=== PATIENT | female | born 1985 | race Caucasian/White ===

== ENCOUNTER 2017-07-02 15:03 | Emergency (ER) | payer MEDICAID, OTHER ==
[~2017-07-02] VITALS: Ht 170.2 cm; Wt 113.0 kg
[~2017-07-02 15:03] MED LIST: ACET-703 PO; IBUP1TAB7 PO
[2017-07-02 15:09] VITALS: BP 144/87; PULSE 93; RESP 16; TEMP 98; O2SAT 99
[2017-07-02] MEDS ORDERED: AUGM875T3 PO (16:23)
[2017-07-02] MEDS ORDERED: FLUT1SPR5 EACH NARE (16:23)
--- NOTE | 2017-07-02 16:23 | PD ---
HPI Chief Complaint: Cold / Flu Symptoms Time Seen by Provider: 16:15 Travel History International Travel<30 days: No Contact w/Intl Traveler<30days: No Traveled to known affect area: No History of Present Illness HPI 32-year-old female here with sinus pain and pressure 7 days. She reports prima nasal discharge. History of sinusitis with similar symptoms in the past. Denies fever or chills. Symptoms severity is moderate. No aggravating or alleviating factors. PFSH Past Medical History Hx Anticoagulant Therapy: No Arthritis: No Asthma: Yes Blood Disorders: No Anxiety: No Depression: No Heart Rhythm Problems: No Cancer: No Cardiovascular Problems: Yes High Cholesterol: No Chemotherapy: No Chest Pain: No Congestive Heart Failure: No Cerebrovascular Accident: No Diabetes: No Diminished Hearing: No Gastrointestinal Disorders: Yes (HYPEREMESIS) GERD: No Glaucoma: No Headaches: Yes Hepatitis: No Hiatal Hernia: No Hypertension: No Immune Disorder: Yes Kidney Stones: No Musculoskeletal: No Neurologic: No Psychiatric: No Reproductive: No Respiratory: Yes (ASTHMA) Immunizations Current: Yes Myocardial Infarction: No Radiation Therapy: No Renal Failure: No Schizophrenia: Yes Seizures: No Sickle Cell Disease: No Sleep Apnea: No Thyroid Disease: No Ulcer: No ?: Not : 4 Para: 1 Miscarriage: 2 : 0 Dilation and Curettage (D&C): Yes (2007) Past Surgical History Abdominal Surgery: Yes () AICD: No Appendectomy: Yes (2007) Cardiac Surgery: No Section: Yes (X3) Ear Surgery: No Endocrine Surgery: No Eye Surgery: No Gynecologic Surgery: Yes (D&C 12/2007) Insulin Pump: No Neurologic Surgery: No Oral Surgery: No Pacemaker: No Thoracic Surgery: No Other Surgery: No Social History Alcohol Use: Yes (RARE) Tobacco Use: No Substance Use: No Allergies-Medications (Allergen,Severity, Reaction): Coded Allergies: clarithromycin (Unverified Allergy, Severe, PARENTS BOTH ALLERGIC TO BIAXIN, 07/02/17) Reported Meds & Prescriptions Reported Meds & Active Scripts Active No Active Prescriptions or Reported Medications Review of Systems Except as stated in HPI: all other systems reviewed are Neg General / Constitutional: No: Fever Eyes: No: Visual changes HENT: Positive: Congestion Cardiovascular: No: Chest Pain or Discomfort Respiratory: No: Shortness of Breath Gastrointestinal: No: Abdominal Pain Genitourinary: No: Dysuria Physical Exam Narrative GENERAL: Alert female who is well-appearing. SKIN: Warm and dry. HEAD: Normocephalic. EYES: No injection or drainage. NOSE: Tenderness over the frontal and maxillary sinuses NECK: Supple, trachea midline. No JVD or lymphadenopathy. CARDIOVASCULAR: Regular rate and rhythm RESPIRATORY: Breath sounds equal bilaterally. No accessory muscle use. Data Data Last Documented VS Vital Signs Date Time Temp Pulse Resp B/P (MAP) Pulse Ox O2 Delivery O2 Flow Rate FiO2 07/02/17 15:09 98.0 93 16 144/87 (106) 99 MDM Medical Decision Making Medical Screen Exam Complete: Yes Emergency Medical Condition: Yes Differential Diagnosis Sinusitis, URI, laryngitis Narrative Course 32-year-old female here with sinus pain and pressure 7 days. Patient has pain and tenderness over her frontal maxillary sinuses. Reported mucopurulent nasal discharge. Patient be treated for sinusitis Diagnosis Primary Impression: Sinusitis Qualified Codes: J01.10 - Acute frontal sinusitis, unspecified Referrals: Primary Care Physician Scripts Fluticasone Nasal [place] (Flonase Nasal [place]) 50 Mcg/Act [place] 50 MCG EACH NARE BID for Allergies, #1 BOTTLE 0 Refills Prov: Hellen Berger 07/02/17 Amoxicillin-Clavulanate (Augmentin) 875-125 Mg Tab 1 TAB PO BID for Infection, #20 TAB 0 Refills Prov: Hellen Berger 07/02/17 Disposition: 01 DISCHARGE HOME Condition: Stable Hellen Berger Jul 02, 2017 16:23
== END 2017-07-02 16:31 | disposition home or self-care (01) ==
LOC: PHEFT 15:03
DX: J01.10 Acute frontal sinusitis, unspecified (principal); R09.89 Other specified symptoms and signs involving the circulatory and respiratory systems; Z87.09 Personal history of other diseases of the respiratory system; Z86.79 Personal history of other diseases of the circulatory system; Z87.19 Personal history of other diseases of the digestive system; Z86.59 Personal history of other mental and behavioral disorders
CPT/HCPCS: 99283

== ENCOUNTER 2017-09-17 14:18 | Emergency (ER) | payer OTHER ==
[~2017-09-17] VITALS: Ht 170.2 cm; Wt 111.0 kg
[~2017-09-17 14:18] MED LIST changes: -ACET-703 PO; +AUGM875T3 PO; +FLUT1SPR5 EACH NARE; -IBUP1TAB7 PO
[2017-09-17 14:22] VITALS: BP 135/78; PULSE 90; RESP 18; TEMP 97.9; O2SAT 99
[2017-09-17] MEDS ORDERED: BUPR100T4 PO (14:52)
[2017-09-17] MEDS ORDERED: IBUPROFEN 800 MG TAB PO ONE (16:00)
--- NOTE | 2017-09-17 16:15 | RADRPT ---
EXAM DATE/TIME: 09/17/2017 16:01 [facility] COMPARISON: CHEST SINGLE AP, May 05, 2016, 13:40. INDICATIONS : Right elbow pain for 5 days. No known trauma. Pain located at olecranon. MEDICAL HISTORY : None. SURGICAL HISTORY : None. ENCOUNTER: Initial ACUITY: 4 - 6 days PAIN SCORE: 4/10 LOCATION: Right elbow. FINDINGS: Multiple view examination of the right elbow demonstrates no soft tissue swelling, joint effusion, or fracture. The osseous structures are in normal alignment. Bony mineralization is normal. CONCLUSION: 1. Negative examination. Williams Romero MD on September 17, 2017 at 16:12 Board Certified Radiologist. This report was verified electronically.
[2017-09-17] MEDS ORDERED: IBUP1TAB7 PO (16:17)
--- NOTE | 2017-09-17 16:20 | PD ---
HPI Chief Complaint: Musculoskeletal Complaint Time Seen by Provider: 15:25 Travel History International Travel<30 days: No Contact w/Intl Traveler<30days: No Traveled to known affect area: No History of Present Illness HPI 32 year old female here with right elbow pain times one day. She cannot recall specific injury. She reports pain over the Olecranon just worse with range of motion and slightly relieved with rest. Symptom severity is moderate. Denies paresthesia or weakness of the extremity. No change in coloration. PFSH Past Medical History Hx Anticoagulant Therapy: No Arthritis: No Asthma: Yes Blood Disorders: No Anxiety: No Depression: No Heart Rhythm Problems: No Cancer: No Cardiovascular Problems: Yes High Cholesterol: No Chemotherapy: No Chest Pain: No Congestive Heart Failure: No Cerebrovascular Accident: No Diabetes: No Diminished Hearing: No Gastrointestinal Disorders: Yes (HYPEREMESIS) GERD: No Glaucoma: No Headaches: Yes Hepatitis: No Hiatal Hernia: No Hypertension: No Immune Disorder: Yes Kidney Stones: No Musculoskeletal: No Neurologic: No Psychiatric: No Reproductive: No Respiratory: Yes (ASTHMA) Immunizations Current: Yes Myocardial Infarction: No Radiation Therapy: No Renal Failure: No Schizophrenia: Yes Seizures: No Sickle Cell Disease: No Sleep Apnea: No Thyroid Disease: No Ulcer: No Tetanus Vaccination: < 5 Years Influenza Vaccination: Yes ?: Not LMP: 18 : 4 Para: 1 Miscarriage: 2 : 0 Dilation and Curettage (D&C): Yes (2007) Past Surgical History Abdominal Surgery: Yes () AICD: No Appendectomy: Yes (2008) Cardiac Surgery: No Section: Yes (X3) Ear Surgery: No Endocrine Surgery: No Eye Surgery: No Gynecologic Surgery: Yes (D&C 12/2007) Insulin Pump: No Neurologic Surgery: No Oral Surgery: No Pacemaker: No Thoracic Surgery: No Other Surgery: No Social History Alcohol Use: Yes (RARE) Tobacco Use: No (QUIT 6 YEARS AGO ) Substance Use: No Allergies-Medications (Allergen,Severity, Reaction): Coded Allergies: clarithromycin (Unverified Allergy, Severe, PARENTS BOTH ALLERGIC TO BIAXIN, 09/17/17) Reported Meds & Prescriptions Reported Meds & Active Scripts Active Ibuprofen 800 Mg Tab 800 Mg PO Q6HR PRN Reported Bupropion HCl 100 Mg Tab 300 Mg PO HS Review of Systems Except as stated in HPI: all other systems reviewed are Neg Physical Exam Narrative GENERAL: Alert and well-appearing 32-year-old female SKIN: Warm and dry. HEAD: Normocephalic. EYES: No injection or drainage. NECK: Supple MUSCULOSKELETAL: No cyanosis. Right upper extremity: +TTP Olecranon. Is able to fully flex and extend the elbow. 2+ brachial and radial pulses. Normal sensation. Normal coloration. Brisk cap refill. Data Data Last Documented VS Vital Signs Date Time Temp Pulse Resp B/P (MAP) Pulse Ox O2 Delivery O2 Flow Rate FiO2 09/17/17 14:22 97.9 90 18 135/78 (97) 99 Orders Orders Elbow, Complete (4 Vws) (09/17/17 ) Ibuprofen (Motrin) (09/17/17 16:00) MDM Medical Decision Making Medical Screen Exam Complete: Yes Emergency Medical Condition: Yes Differential Diagnosis Fracture, sprain, strain, tendinitis Narrative Course 32-year-old female here with right elbow pain. Extremity is neurovascular intact. X-ray negative for fracture. Diagnosis Primary Impression: Right elbow tendinitis Referrals: Primary Care Physician Additional Instructions: Sling as needed for comfort Ibuprofen as directed Scripts Ibuprofen (Ibuprofen) 800 Mg Tab 800 MG PO Q6HR Y for PAIN, #40 TAB 0 Refills Prov: Hellen Berger 09/17/17 Disposition: 01 DISCHARGE HOME Condition: Stable Hellen Berger Sep 17, 2017 16:20
== END 2017-09-17 16:49 | disposition home or self-care (01) ==
LOC: PHEFT 14:18
DX: M77.9 Enthesopathy, unspecified (principal)
CPT/HCPCS: 73080; 99283

== ENCOUNTER 2017-10-24 12:56 | Emergency (ER) | payer OTHER ==
[~2017-10-24] VITALS: Ht 170.2 cm; Wt 111.0 kg
[~2017-10-24 12:56] MED LIST changes: -AUGM875T3 PO; +BUPR100T4 PO; -FLUT1SPR5 EACH NARE; +IBUP1TAB7 PO
[2017-10-24 13:00] VITALS: BP 145/88; PULSE 91; RESP 18; TEMP 98.4; O2SAT 98
[2017-10-24] MEDS ORDERED: FLUT1SPR5 EACH NARE (13:08)
[2017-10-24] MEDS ORDERED: PROMSYP3 PO (13:41)
--- NOTE | 2017-10-24 13:42 | PD ---
HPI Chief Complaint: Cold / Flu Symptoms Time Seen by Provider: 13:20 Travel History International Travel<30 days: No Contact w/Intl Traveler<30days: No Traveled to known affect area: No History of Present Illness HPI 32-year-old female here with nasal congestion, sore throat, cough, hoarse voice 4 days. Symptom severity is moderate. No aggravating or alleviating factors. Denies fever chills. No wheezing or shortness of breath. No nausea or vomiting. Symptoms are unrelieved by OTC cough and cold medicine. PFSH Past Medical History Hx Anticoagulant Therapy: No Arthritis: No Asthma: Yes Blood Disorders: No Anxiety: No Depression: No Heart Rhythm Problems: No Cancer: No Cardiovascular Problems: Yes High Cholesterol: No Chemotherapy: No Chest Pain: No Congestive Heart Failure: No Cerebrovascular Accident: No Diabetes: No Diminished Hearing: No Gastrointestinal Disorders: Yes (HYPEREMESIS) GERD: No Glaucoma: No Headaches: Yes Hepatitis: No Hiatal Hernia: No Hypertension: No Immune Disorder: Yes Kidney Stones: No Musculoskeletal: No Neurologic: No Psychiatric: No Reproductive: No Respiratory: Yes (ASTHMA) Immunizations Current: Yes Myocardial Infarction: No Radiation Therapy: No Renal Failure: No Schizophrenia: Yes Seizures: No Sickle Cell Disease: No Sleep Apnea: No Thyroid Disease: No Ulcer: No Tetanus Vaccination: < 5 Years Influenza Vaccination: Yes ?: Not LMP: Now : 4 Para: 3 Miscarriage: 2 : 0 Dilation and Curettage (D&C): Yes (2007) Past Surgical History Abdominal Surgery: Yes () AICD: No Appendectomy: Yes (2007) Cardiac Surgery: No Section: Yes (X's 3) Ear Surgery: No Endocrine Surgery: No Eye Surgery: No Gynecologic Surgery: Yes (D&C 12/2007) Insulin Pump: No Neurologic Surgery: No Oral Surgery: No Pacemaker: No Thoracic Surgery: No Other Surgery: No Social History Alcohol Use: Yes (Rarely) Tobacco Use: No Substance Use: No Allergies-Medications (Allergen,Severity, Reaction): Coded Allergies: clarithromycin (Unverified Allergy, Severe, PARENTS BOTH ALLERGIC TO BIAXIN, 10/24/17) Reported Meds & Prescriptions Reported Meds & Active Scripts Active Reported Flonase Nasal [place] (Fluticasone Nasal [place]) 50 Mcg/Act [place] 50 Mcg EACH NARE DAILY Bupropion HCl 100 Mg Tab 300 Mg PO HS Review of Systems Except as stated in HPI: all other systems reviewed are Neg General / Constitutional: No: Fever HENT: Positive: Sore Throat, Congestion Cardiovascular: No: Chest Pain or Discomfort Respiratory: Positive: Cough Gastrointestinal: No: Abdominal Pain Genitourinary: No: Dysuria Physical Exam Narrative GENERAL: Alert and well-appearing 32-year-old female SKIN: Warm and dry. No rash HEAD: Normocephalic. EYES: No injection or drainage. ENT; clear nasal discharge. No sinus pain or tenderness. No pharyngeal erythema. Uvula is midline. Airways patent. Hoarse voice. NECK: Supple, trachea midline. CARDIOVASCULAR: Regular rate and rhythm without murmurs, gallops, or rubs. RESPIRATORY: Breath sounds equal bilaterally. No accessory muscle use. No wheezing, rales, rhonchi. GASTROINTESTINAL: Abdomen soft, non-tender, nondistended. MUSCULOSKELETAL: No cyanosis, or edema. BACK: No CVA tenderness. Data Data Last Documented VS Vital Signs Date Time Temp Pulse Resp B/P (MAP) Pulse Ox O2 Delivery O2 Flow Rate FiO2 10/24/17 13:05 18 98 Room Air 10/24/17 13:00 98.4 91 145/88 (107) MDM Medical Decision Making Medical Screen Exam Complete: Yes Emergency Medical Condition: Yes Differential Diagnosis URI, laryngitis, bronchitis, pneumonia, influenza Narrative Course 32-year-old female here with pharyngitis and viral URI. She is well-appearing. Vital signs are stable. Diagnosis Primary Impression: URI (upper respiratory infection) Qualified Codes: J06.9 - Acute upper respiratory infection, unspecified Referrals: Primary Care Physician Departure Forms: Tests/Procedures, Work Release Enter return to work date: Oct 27, 2017 Additional Instructions: Medication as directed. Tylenol and ibuprofen for fever and pain. Stable hydrated. Scripts Dextromethorphan-Promethazine Liq (Promethazine-Dextromethorphan Liq) 6.25-15 Mg /5 Ml Syrp 10 ML PO Q6HR Y for COUGH, #120 ML Prov: Hellen Berger 10/24/17 Disposition: 01 DISCHARGE HOME Condition: Stable Hellen Berger Oct 24, 2017 13:42
== END 2017-10-24 13:55 | disposition home or self-care (01) ==
LOC: PHEFT 12:56
DX: J06.9 Acute upper respiratory infection, unspecified (principal)
CPT/HCPCS: 99283

== ENCOUNTER 2017-11-17 11:53 | Emergency (ER) | payer OTHER ==
[~2017-11-17] VITALS: Ht 170.2 cm; Wt 109.0 kg
[~2017-11-17 11:53] MED LIST changes: +FLUT1SPR5 EACH NARE; -IBUP1TAB7 PO; +PROMSYP3 PO
[2017-11-17 11:58] VITALS: BP 140/87; PULSE 83; RESP 16; TEMP 98; O2SAT 98
[2017-11-17] MEDS ORDERED: IBUP1TAB7 PO (12:11)
[2017-11-17] MEDS ORDERED: SODIUM CHLOR 0.9% 1000 ML INJ 1,000 ML IV ONE (12:30)
[2017-11-17] MEDS ORDERED: ACETAMINOPHEN 325 MG TAB PO ONE (12:30)
[2017-11-17] MEDS ORDERED: diphenhydrAMINE HCL 50 MG/ML VIAL IV PUSH ONE (12:30)
[2017-11-17] MEDS ORDERED: PROCHLORPERAZINE INJ 10 MG/2 ML VIAL IV PUSH ONE (12:30)
--- NOTE | 2017-11-17 12:50 | PD ---
HPI Chief Complaint: Headache Time Seen by Provider: 12:11 Travel History International Travel<30 days: No Contact w/Intl Traveler<30days: No Traveled to known affect area: No History of Present Illness HPI Patient is a 32 year old female who comes in complaining of right sided headache for 2 days. She says the pain started in her temporal area and spread to the entire right side of her face. She denies blurred vision, dizziness, or nausea. She says she took an Ibuprofen this morning without relief. She denies fever, chills, or head injury. She says she has had two previous headaches, which she believes were migraines, but has never been on chronic medications for migraines. She says the pain today is worse then previous. Severity is moderate. PFSH Past Medical History Hx Anticoagulant Therapy: No Arthritis: No Asthma: Yes Blood Disorders: No Anxiety: No Depression: Yes Heart Rhythm Problems: No Cancer: No Cardiovascular Problems: Yes High Cholesterol: No Chemotherapy: No Chest Pain: No Congestive Heart Failure: No Cerebrovascular Accident: No Diabetes: No Diminished Hearing: No Gastrointestinal Disorders: Yes (HYPEREMESIS) GERD: No Glaucoma: No Headaches: Yes Hepatitis: No Hiatal Hernia: No Hypertension: No Immune Disorder: Yes Kidney Stones: No Musculoskeletal: No Neurologic: No Psychiatric: No Reproductive: No Respiratory: Yes (ASTHMA) Immunizations Current: Yes Myocardial Infarction: No Radiation Therapy: No Renal Failure: No Schizophrenia: Yes Seizures: No Sickle Cell Disease: No Sleep Apnea: No Thyroid Disease: No Ulcer: No Influenza Vaccination: Yes ?: Not LMP: NOW : 4 Para: 3 Miscarriage: 2 : 0 Dilation and Curettage (D&C): Yes (2007) Past Surgical History Abdominal Surgery: Yes () AICD: No Appendectomy: Yes (2007) Cardiac Surgery: No Section: Yes (X's 3) Ear Surgery: No Endocrine Surgery: No Eye Surgery: No Gynecologic Surgery: Yes (D&C 12/2007) Insulin Pump: No Neurologic Surgery: No Oral Surgery: No Pacemaker: No Thoracic Surgery: No Other Surgery: No Social History Alcohol Use: Yes (Rarely) Tobacco Use: No Substance Use: No Allergies-Medications (Allergen,Severity, Reaction): Coded Allergies: No Known Allergies (Unverified , 11/17/17) Reported Meds & Prescriptions Reported Meds & Active Scripts Active Reported Ibuprofen 800 Mg Tab 800 Mg PO ONCE PRN Flonase Nasal [place] (Fluticasone Nasal [place]) 50 Mcg/Act [place] 50 Mcg EACH NARE DAILY Bupropion HCl 100 Mg Tab 300 Mg PO HS Review of Systems Except as stated in HPI: all other systems reviewed are Neg General / Constitutional: No: Fever, Chills Eyes: No: Blurred Vision HENT: Positive: Headaches Cardiovascular: No: Chest Pain or Discomfort Respiratory: No: Shortness of Breath Gastrointestinal: No: Nausea, Vomiting Musculoskeletal: No: Myalgias Skin: No Rash, No Change in Pigmentation Neurologic: No: Weakness, Dizziness Physical Exam Narrative GENERAL: Awake and alert, no acute distress. SKIN: Focused skin assessment warm/dry. No wounds or signs of infection. HEAD: Atraumatic. Normocephalic. EYES: Pupils equal and round and reactive. No scleral icterus. Extraocular movements intact. ENT: Mucous membranes pink and moist. NECK: Trachea midline. No JVD. CARDIOVASCULAR: Regular rate and rhythm. No murmur appreciated. RESPIRATORY: No accessory muscle use. Clear to auscultation. Breath sounds equal bilaterally. GASTROINTESTINAL: Abdomen soft, non-tender, nondistended. MUSCULOSKELETAL: No obvious deformities. No clubbing. No cyanosis. No edema. NEUROLOGICAL: Awake and alert. No obvious cranial nerve deficits. Motor grossly within normal limits. Normal speech. PSYCHIATRIC: Appropriate mood and affect; insight and judgment normal. Data Data Last Documented VS Vital Signs Date Time Temp Pulse Resp B/P (MAP) Pulse Ox O2 Delivery O2 Flow Rate FiO2 11/17/17 12:55 74 16 141/92 (108) 100 Room Air 11/17/17 11:[address] Brain W/O Iv Contrast(Rout) (11/17/17 ) Iv Access Insert/Monitor (11/17/17 12:20) Diphenhydramine Inj (Benadryl Inj) (11/17/17 12:30) Prochlorperazine Inj (Compazine Inj) (11/17/17 12:30) Sodium Chlor 0.9% 1000 Ml Inj (Ns 1000 M (11/17/17 12:30) Acetaminophen (Tylenol) (11/17/17 12:30) MDM Medical Decision Making Medical Screen Exam Complete: Yes Emergency Medical Condition: Yes Medical Record Reviewed: Yes Differential Diagnosis Migraine versus tension headache versus dehydration Narrative Course Patient is a 32-year-old female who comes in complaining of a right-sided headache. Exam shows no neurologic abnormalities. CT head performed shows no acute abnormalities. Patient given IV fluids, Compazine, Benadryl, Tylenol. She reports resolution of her symptoms. She will be discharged with prescription for Fioricet. Advised drink plenty fluids. Advised return to the ED as needed for any worsening symptoms. Advised follow-up with a primary care doctor. Diagnosis Primary Impression: Headache Qualified Codes: R51 - Headache Referrals: [facility] call for appointment Patient Instructions: Acute Headache (ED), General Instructions Additional Instructions: Drink plenty of fluids. Follow-up with a primary care doctor. You can take Fioricet for a severe headache, be careful as it may make you drowsy. Also do not combine this with Tylenol as it has Tylenol in it. Return to the ED as needed for any worsening symptoms. Scripts Wxotunfxsr-Czijpoahfnrzx-Ajflthha (Fioricet) 50-300-40 Mg Cap 1-2 CAP PO Q6H Y for HEADACHE, #10 CAP 0 Refills Prov: Joyce Franco MD 11/17/17 Disposition: 01 DISCHARGE HOME Condition: Stable Joyce Franco MD November 17, 2017 12:50
[2017-11-17 12:55] VITALS: BP 141/92; PULSE 74; RESP 16; O2SAT 100
--- NOTE | 2017-11-17 13:39 | RADRPT ---
EXAM DATE/TIME: 11/17/2017 13:17 [facility] COMPARISON: No previous studies available for comparison. INDICATIONS : Right sided cephalgia for two days. RADIATION DOSE: 56.50 CTDIvol (mGy) MEDICAL HISTORY : None SURGICAL HISTORY : section. ENCOUNTER: Initial ACUITY: 1 day PAIN SCALE: 7/10 LOCATION: Right head TECHNIQUE: Multiple contiguous axial images were obtained of the head. Using automated exposure control and adj ustment of the mA and/or kV according to patient size, radiation dose was kept as low as reasonably a chievable to obtain optimal diagnostic quality images. DICOM format image data is available electro nically for review and comparison. FINDINGS: CEREBRUM: The ventricles are normal for age. No evidence of midline shift, mass lesion, hemorrhage or acute in farction. No extra-axial fluid collections are seen. The ossification in the anterior falx. POSTERIOR FOSSA: The cerebellum and brainstem are intact. The 4th ventricle is midline. The cerebellopontine angle i s unremarkable. EXTRACRANIAL: The visualized portion of the orbits is intact. SKULL: The calvaria is intact. No evidence of skull fracture. CONCLUSION: 1. No acute findings in the brain. Joni Barillas MD on November 17, 2017 at 13:36 Board Certified Radiologist. This report was verified electronically.
[2017-11-17] MEDS ORDERED: BUTA1CAP PO (13:46)
[2017-11-17 13:52] VITALS: BP 144/92; PULSE 82; RESP 16; O2SAT 100
[2017-11-17 13:59] VITALS: RESP 16
== END 2017-11-17 14:18 | disposition home or self-care (01) ==
LOC: PHED 11:53
DX: R51 Headache (principal); J45.909 Unspecified asthma, uncomplicated
CPT/HCPCS: 70450; 96361; 96374; 96375; 99284; J0780; J1200; J7030